=== PATIENT | female | born 1950 | race African-American/Black ===

== ENCOUNTER 2018-06-25 13:22 | Emergency (ER) | payer BC, MEDICARE ==
[~2018-06-25] VITALS: Ht 165.1 cm; Wt 70.3 kg
[~2018-06-25 13:22] MED LIST: ALPRAZOLAM 0.50.5 M1 PO; AMBIEN5 MG PO; AMOXICILLIN500 M1 PO; CALCIUM 500 +1 EAC5 PO; CEFUROXIME250 MG PO; CIPRO500 MG PO; FIORICET 50-321 EACH PO; FLAGYL500 MG PO; FLEXERIL PO; HYDROCORTISONE30 G9 TOP; LASIX 20 MG TAB20 MG PO; LASIX 40 MG TAB40 M2 PO; LISINOPRIL20 MG PO; METOPROLOL SUCC50 MG PO; NAPROSYN500 MG PO; NEURONTIN 300300 M1 PO; NORCO 10-325 T1 EACH PO; NORCO 5-325 TA1 EACH PO; ONDANSETRON HCL4 M2 PO; PENICILLIN VK500 M1 PO; PREDNISONE 10 M10 MG PO; PRINIVIL20 MG PO; PROTONIX40 M1 PO; TOPROL XL100 MG PO; VENTOLIN HFA 1818 GM INH; XANAX 0.25 MG0.25 MG PO; [UNRECOGNIZED DRUG - REMARK]
[2018-06-25 13:26] VITALS: BP 155/68
== END 2018-06-25 14:08 | disposition home or self-care (01) ==
LOC: M.ERS 13:22
DX: S61.213A Laceration without foreign body of left middle finger without damage to nail, initial encounter (principal); J44.9 Chronic obstructive pulmonary disease, unspecified; I11.0 Hypertensive heart disease with heart failure; I50.9 Heart failure, unspecified; Z90.710 Acquired absence of both cervix and uterus; F17.210 Nicotine dependence, cigarettes, uncomplicated; Z88.1 Allergy status to other antibiotic agents; W45.8XXA Other foreign body or object entering through skin, initial encounter; Y93.89 Activity, other specified; Y92.89 Other specified places as the place of occurrence of the external cause; Y99.8 Other external cause status